=== PATIENT | female | born 1990 | race Asian ===

== ENCOUNTER 2021-04-27 18:03 | Emergency (ER) | payer MEDICAID ==
[~2021-04-27] VITALS: Ht 1681.5 cm; Wt 67.6 kg
[2021-04-27] MEDS ORDERED: GABA300C PO (19:14)
[2021-04-27] MEDS ORDERED: PRED50TA PO (19:14)
== END 2021-04-27 19:32 | disposition home or self-care (01) ==
LOC: ER 18:13
DX: M43.6 Torticollis (principal)
CPT/HCPCS: A4663